=== PATIENT | male | born 1960 | race Caucasian/White ===

== ENCOUNTER 2016-06-14 23:30 | Inpatient (IN) | payer MEDICAID ==
[~2016-06-14] VITALS: Ht 180.3 cm; Wt 80.0 kg
[2016-06-14] MEDS ORDERED: ONDANSETRON 4 MG INJ IV STA (23:51)
[2016-06-14] MEDS ORDERED: SOD CHLORIDE 0.9% 1,000 ML IV STA (23:51)
[2016-06-14] MEDS ORDERED: morphine 4 MG/ML VIAL IV STA (23:51)
[2016-06-15] VITALS (10 sets, daily range): BP systolic 107–134; BP diastolic 67–85; PULSE 62–94; RESP 11–20; TEMP 98.1; Ht 180.3 cm; Wt 80.0 kg
[2016-06-15] MEDS ORDERED: ERTAPENEM SODIUM 1 GM in SOD CHLORIDE 0.9% 100 ML IVPB ONE ×2
--- NOTE | 2016-06-15 00:05 | ERA ---
ER Documentation Chief Complaint Date/Time DATE: 06/15/16 TIME: 00:01 Chief Complaint left testicle pain suddenly, appears in distress. Hx hernia HPI Patient is a 55-year-old male who states he has had a hernia for 2 years however he has developed left testicular pain in the last 24 hours. He states the pain is significant and has caused him to have nausea and vomiting. He states it is also causing him to have diffuse abdominal pain. He states all of these symptoms are new and is related to the left testicular pain. He says his left testicle is significantly swollen more so than usual. He denies any significant trauma to the testicle, fever, diarrhea, dysuria, hematuria, flank pain. He states he did go to [facility] where they reduced the hernia sometime earlier this week. Patient tells me however he does not have a general surgeon or urologist. Nothing seems to make this pain better and general movement increases the pain. The remainder of the systems are negative. ROS All systems reviewed and are negative except as per history of present illness. Medications Home Meds No Active Prescriptions or Reported Meds Allergies Allergies: Coded Allergies: No Known Allergy (Unverified , 06/14/16) FmHx Family History: No coronary disease, No diabetes Physical Exam Vitals Vital Signs Date Time Temp Pulse Resp B/P Pulse Ox O2 Delivery O2 Flow Rate FiO2 06/14/16 23:34 97.5 101 24 136/81 100 Physical Exam Const: [] Well-developed well-nourished male lying on the bed in obvious pain Head: Atraumatic Eyes: Normal Conjunctiva ENT: Normal External Ears, Nose and Mouth. Neck: Full range of motion..~ No meningismus. Resp: Clear to auscultation bilaterally Cardio: Regular rate and rhythm, no murmurs Abd: Soft, diffusely tender to palpation, no audible bowel sounds, no distention, no masses, no rebound, voluntary guarding diffusely Skin: No petechiae or rashes Back: No midline or flank tenderness Ext: No cyanosis, or edema Neur: Awake and alert, oriented 3, GCS of 15 Psych: Normal Mood and Affect exam reveals his right testicle to be within normal limits and nontender, his left testicle be grossly edematous with what appears to be a hernia emanating from the left inguinal region. I am unable to reduce this hernia. He is exquisitely tender to palpation. Result Diagram: 06/14/16 2340 06/14/16 2340 Results 24 hrs Laboratory Tests Test 06/14/16 00:30 06/14/16 23:40 Urine Bilirubin NEGATIVE Urine Clarity CLEAR Urine Color LT. YELLOW Urine Glucose NEGATIVE% Urine Hemoglobin NEGATIVE Urine Ketones 15 Urine Leukocyte Esterase NEGATIVE Urine Nitrite NEGATIVE Urine Specific [place] 1.025 Urine Total Protein NEGATIVE Urine Urobilinogen 0.2 E.U./dL Urine pH 6.0 Alanine Aminotransferase (ALT/SGPT) 31IU/L Albumin 4.5g/dl Albumin/Globulin Ratio 1.40 Alkaline Phosphatase 82IU/L Anion Gap 20 Aspartate Amino Transf (AST/SGOT) 20IU/L Basophils # 0.010^3/ul Basophils % 0.4% Blood Urea Nitrogen 22mg/dl Calcium Level 9.3mg/dl Carbon Dioxide Level 25mmol/L Chloride Level 102mmol/L Creatinine 0.68mg/dl Direct Bilirubin 0.00mg/dl Eosinophils # 0.310^3/ul Eosinophils % 2.5% Globulin 3.20g/dl Glucose Level 112mg/dl Hematocrit 42.8% Hemoglobin 14.8g/dl Indirect Bilirubin 0.9mg/dl Lactic Acid Level 1.0mmol/L Lipase 43U/L Lymphocytes # 2.010^3/ul Lymphocytes % 18.5% Mean Corpuscular Hemoglobin 30.5pg Mean Corpuscular Hemoglobin Concent 34.6g/dl Mean Corpuscular Volume 88.2fl Mean Platelet Volume 11.1fl Monocytes # 0.710^3/ul Monocytes % 6.7% Neutrophils # 7.910^3/ul Neutrophils % 71.4% Nucleated Red Blood Cells # 0.010^3/ul Nucleated Red Blood Cells % 0.0/100WBC Platelet Count 43725^3/UL Potassium Level 4.1mmol/L Red Blood Count 4.8510^6/ul Red Cell Distribution Width 12.0% Sodium Level 143mmol/L Total Bilirubin 0.9mg/dl Total Protein 7.7g/dl White Blood Count 11.010^3/ul Current Medications Medications (Trade) Dose Ordered Sig/Garry Route PRN Reason Start Time Stop Time Status Last Admin Dose Admin Sodium Chloride (NS) 1,000 ml @ 1,000 mls/hr Q1H STAT IV 06/14/16 23:51 06/15/16 00:50 DC 06/15/16 00:00 Morphine Sulfate (morphine) 4 mg ONCE STAT IV 06/14/16 23:51 06/14/16 23:58 DC 06/15/16 00:00 Ondansetron HCl 4 mg 4 mg ONCE STAT IV 06/14/16 23:51 06/14/16 23:58 DC 06/15/16 00:00 Ertapenem/Sodium Chloride (Invanz/NS) 100 ml @ 200 mls/hr ONCE ONCE IVPB 06/15/16 00:00 06/15/16 00:29 DC 06/15/16 00:46 IV Flush 10 ml 10 ml STK-MED ONCE .ROUTE 06/15/16 01:36 06/15/16 01:37 DC 06/15/16 01:51 Sodium Chloride (NS) 100 ml @ ud STK-MED ONCE .ROUTE 06/15/16 01:36 06/15/16 01:37 DC 06/15/16 01:51 Iohexol (Omnipaque 300mg/ ml) 150 ml STK-MED ONCE .ROUTE 06/15/16 01:36 06/15/16 01:37 DC 06/15/16 01:51 Morphine Sulfate (morphine) 4 mg ONCE STAT IV 06/15/16 02:28 06/15/16 02:29 DC 06/15/16 02:34 Ondansetron HCl (Zofran Inj) 4 mg ONCE STAT IV 06/15/16 02:28 06/15/16 02:29 DC 06/15/16 02:34 Procedures/MDM Differential includes but is not limited to a irreducible left inguinal hernia, bowel, bowel obstruction CAT scan of the abdomen and pelvis demonstrates a large left inguinal hernia with bowel incarcerated. Ultrasound shows that the patient has bilateral hernias however the left inguinal hernia is incarcerated Patient's pain has returned. I have ordered him more morphine and Zofran for his pain management. I spoke with Dr. Atkins who is on for general surgery. He is requested that we place an NG tube. He will operated on the patient in the morning. I spoke with Dr. Moody who is going to admit the patient for medical management. Departure Diagnosis: Primary Impression: Incarcerated left inguinal hernia Additional Impression: Testicular pain, left Condition: Good SAI GOMEZ Jun 15, 2016 00:04
[2016-06-15 00:58] LABS: ADD SCAN DIFF NO
--- NOTE | 2016-06-15 01:10 | RADRPT ---
PROCEDURE: ULTRASOUND TESTICULAR CLINICAL INDICATION: 55-year-old male with abdominal and testicular pain. TECHNIQUE: Multiple sonographic images of the scrotal region were obtained utilizing a linear arra y transducer with grayscale and color-flow and a Doppler imaging. The images were reviewed on a high -resolution PACS workstation. COMPARISON: None. FINDINGS: The right testicle is well visualized and has a normal echotexture. No focal areas of abnormal echog enicity are visualized. The right testicle measures 4.4 x 2.5 x 2 point a cm. There is normal color- flow. The right epididymis is visualized and measures approximately measures 13 x 11 mm. There is no rmal color-flow. There is [id number] right-sided hydrocele with septations. The left testicle is well visualized and has a normal echotexture. No focal areas abnormal echogenic ity are visualized. The left testicle measures 4.3 x 2.1 x 3.1 cm. There is normal color-flow. The l eft epididymis is visualized and measures approximately measures 12 x 9 mm. There is increased color -flow. There is bowel contents identified within the scrotal sac bilaterally extending to the inguinal heather ons. IMPRESSION: 1. No sonographic evidence for testicular torsion. 2. Jfrm-tm-[id number] septated right-sided hydrocele. 3. Mild increased flow within the left epididymis. Epididymitis cannot be excluded. Clinical yenny elation is necessary. 4. Bowel contents within the scrotal sac extending from the inguinal regions bilaterally consistent with a hernia. .Meet Silva MD, Date Time Electronically viewed and signed by .Meet Silva MD, MD on 06/15/2016 01:09 .Lorna
[2016-06-15 01:24] LABS: ALBUMIN 4.5 g/dl (3.3-4.9)
[2016-06-15 01:25] LABS: POTASSIUM 4.1 mmol/L (3.5-5.1)
[2016-06-15 01:26] LABS: CREATININE 0.68 mg/dl (0.61-1.24)
[2016-06-15 01:27] LABS: ALBUMIN/GLOBULIN RATIO 1.4; BASOPHILS % 0.4 % (0.0-2.0); BILIRUBIN,INDIRECT 0.9 mg/dl (0-1.1); BILIRUBIN,TOTAL 0.9 mg/dl (0.2-1.3); CALCIUM 9.3 mg/dl (8.4-10.2); EOSINOPHILS # 0.3 10^3/ul (0.0-0.5); EOSINOPHILS % 2.5 % (0.0-7.0); HEMATOCRIT 42.8 % (42.0-52.0); HEMOGLOBIN 14.8 g/dl (14.0-18.0); LYMPHOCYTES % 18.5 % (15.0-51.0); MEAN CORPUSCULAR HEMOGLOBIN 30.5 pg (29.0-33.0); MEAN CORPUSCULAR HGB CONC 34.6 g/dl (32.0-37.0); MEAN CORPUSCULAR VOLUME 88.2 fl (82.0-101.0); MEAN PLATELET VOLUME 11.1 fl (7.4-10.4); MONOCYTE # 0.7 10^3/ul (0.3-0.9); MONOCYTES % 6.7 % (0.0-11.0); NEUTROPHIL # 7.9 10^3/ul (1.6-7.5); NEUTROPHILS % 71.4 % (39.0-77.0); PLATELET COUNT 282 10^3/UL (140-415); RED BLOOD COUNT 4.85 10^6/ul (4.70-6.10); TOTAL PROTEIN 7.7 g/dl (6.1-8.1)
[2016-06-15] MEDS ORDERED: IOHEXOL 300MG/ML 150 ML BTL ONE (01:36)
[2016-06-15] MEDS ORDERED: SOD CHLORIDE 0.9% 100 ML ONE (01:36)
[2016-06-15 01:50] LABS: ADD UMIC NO; URINE BILIRUBIN (Dip) NEGATIVE (NEGATIVE); URINE BLOOD (Dip) NEGATIVE (NEGATIVE); URINE COLOR LT. YELLOW (YELLOW); URINE GLUCOSE (Dip) NEGATIVE (NEGATIVE); URINE KETONES (Dip) 15 (NEGATIVE); URINE LEUKOCYTE ESTERASE (Dip) NEGATIVE (NEGATIVE); URINE NITRITE (Dip) NEGATIVE (NEGATIVE); URINE TOTAL PROTEIN (Dip) NEGATIVE (NEGATIVE); URINE UROBILINOGEN (Dip) 0.2 E.U./dL (0.1-1.0)
--- NOTE | 2016-06-15 02:14 | RADRPT ---
PROCEDURE: CT ABDOMEN/PELVIS WITH CONTRAST CLINICAL INDICATION: 55-year-old male with abdominal pain. TECHNIQUE: The study was performed utilizing a [employer] VCT 64-slice CT scanner. Direct axia l sections were obtained through the abdomen and pelvis with the use of 90 cc of Omnipaque-300 nonio kellen intravenous contrast material. Sagittal and coronal reformations were obtained. Automated exposu re control and iterative reconstruction techniques were utilized for this examination. The images w ere reviewed on a PACS workstation. CTD/vol = 8.8 mGy; Total Exam DLP = 568.6 mGy-cm. COMPARISON: Testicular ultrasound June 15, 2016. FINDINGS: There is mild bibasilar subsegmental atelectasis. There is no evidence for significant pleural effu sanford. The liver has a normal size and contour without focal areas of abnormal density or contrast e nhancement. No intrahepatic nor extrahepatic biliary ductal dilatation is seen. The gallbladder demo nstrates no wall thickening nor pericholecystic fluid. No biliary stones are evident. The pancreas i s without areas of abnormal attenuation or contrast enhancement. This spleen is identified and has a normal size without abnormal density or contrast enhancement. The adrenal glands are unremarkable. The kidneys are functional bilaterally without abnormal density. No hydroureteronephrosis nor nephr oureterolithiasis is evident. The urinary bladder contains urine. There is a small right inguinal he rnia containing fat as well as a loop of small bowel without evidence for incarceration. The right i nguinal hernia as an opening of 1.8 x 1.3 cm. There is a very large left inguinal hernia containing dilated loops of small bowel with transition point and proximal dilatations suggestive of incarcerat ion and obstruction. The hernia sac also contains a portion of the sigmoid colon. Noted are small diverticula within the sigmoid colon within the hernia sac without definite surrounding inflammatory changes. Note that there is mild infiltration of the omental fat within the hernia sac is well as mild fluid. The left inguinal hernia as an opening of 4.8 x 3.9 cm. The appendix is not clearly vis ualized. There is no significant pelvic free fluid. The aortoiliac vessels are without aneurysmal d ilatation. Degenerative changes are present within the spine. There is bilateral L5 pars interartic ularis defects. There is anterolisthesis of L5-S1 of approximately 20% with discogenic disease, dif fuse disk bulge and severe bilateral foraminal stenosis. IMPRESSION: 1. Mild bibasilar subsegmental atelectasis. 2. Small right inguinal hernia containing a loop of small bowel without incarceration. 3. Very large left inguinal hernia containing dilated fluid loops of small bowel with fecalization and transition point consistent with incarceration and resultant small bowel obstruction. The hernia sac also contains a decompressed loop of sigmoid colon, omental fat and fluid. 4. Sigmoid diverticulosis within the hernia sac. 5. L5-S1 spondylolisthesis (20%) with severe bilateral foraminal stenosis. .Meet Silva MD, MD Date Time Electronically viewed and signed by .Meet Silva MD, MD on 06/15/2016 02:14 .Lorna
[2016-06-15] MEDS ORDERED: ONDANSETRON 4 MG INJ IV STA (02:28)
[2016-06-15] MEDS ORDERED: morphine 4 MG/ML VIAL IV STA (02:28)
[2016-06-15] MEDS ORDERED: ACETAMINOPHEN 325 MG TAB PO PRN (03:00)
[2016-06-15] MEDS ORDERED: ONDANSETRON 4 MG INJ IV PRN ×3 (03:00→14:00)
--- NOTE | 2016-06-15 03:04 | HP ---
Date/Time of Note Date/Time of Note DATE: 06/15/16 TIME: 02:58 Assessment/Plan VTE Prophylaxis VTE Prophylaxis Intervention: SCD's Assessment/Plan Assessment/Plan 55 yo male with no significant past medical history who presents with a left inguinal pain for the last two days. 1. Left incarcerated inguinal hernia - will admit the patient to med/surg, NPO, NGT, surgery notified, IVF, IV antibiotics, pain management, awaiting surgical intervention 2. Leukocytosis 2/2 #1 3. GI ppx - pepcid IV 4. DVT ppx - scds answered all of his questions. as per clinical course. this history and physical took greater then 45 minutes to complete HPI/ROS Admit Date/Time Admit Date/Time 06/15/2016, 2:58 am Hx of Present Illness 55 yo male with no significant past medical history who presents with a left inguinal pain for the last two days. He has been battling left inguinal hernia for over 2 years now. The pain has increasing worsened substantially over the last two days. It's 10/10 in intensity, radiating upwards, sharp/shooting, constant, with no alleviating factors, associated with nausea and 1 episode of NBNB vomitus. He denies any chest pain, shortness of breath, headaches, urinary irregularities, fevers/chills, diarrhea/constipation or other constitutional symptoms. ED course: invanz, pain medications, IVF ROS 14 point review of systems completed, please refer to HPI for any positive findings PMH/Family/Social Past Medical History Medical History: no pertinent history Past Surgical History Past Surgical Hx: no surgical history Family History Significant Family History: no pertinent family hx Social History Alcohol Use: none Smoking Status: Never smoker Drug Use: none Exam/Review of Systems Vital Signs Vitals Vital Signs Date Time Temp Pulse Resp B/P Pulse Ox O2 Delivery O2 Flow Rate FiO2 06/14/16 23:34 97.5 101 24 136/81 100 Intake and Output 06/14/16 06/14/16 06/15/16 15:00 23:00 07:00 Intake Total 1100 ml Balance 1100 ml Exam Exam Gen Colton: moderate distress 2/2 to inguinal pain, AAOx4 HEENT: NC/AT, PERRLA, EOMI, no pharyngeal erythema, no tonsillar exudates, no lymphadenopathy, no JVD, no carotid bruits NECK: supple, no thyromegaly THORAX: symmetrical, no obvious deformities CV: S1S2, RRR, no M/G/R Lungs: CTAB no W/C/R/R Abd: soft, NT/ND, +BS, no rebound, no guarding, neg HSM : left inguinal tenderness to palpation, enlarged scrotum, erythema noted, non -reducible hernia EXT: no edema, no ecchymosis, no clubbing, FROM Neuro: CN II-XII grossly intact, no focal deficits Psych: anxious Skin: C/D/I Labs Result Diagram: 06/14/16 2340 06/14/[address] abd/pelvis IMPRESSION: 1. Mild bibasilar subsegmental atelectasis. 2. Small right inguinal hernia containing a loop of small bowel without incarceration. 3. Very large left inguinal hernia containing dilated fluid loops of small bowel with fecalization and transition point consistent with incarceration and resultant small bowel obstruction. The hernia sac also contains a decompressed loop of sigmoid colon, omental fat and fluid. 4. Sigmoid diverticulosis within the hernia sac. 5. L5-S1 spondylolisthesis (20%) with severe bilateral foraminal stenosis. Testicular US IMPRESSION: 1. No sonographic evidence for testicular torsion. 2. Juek-ba-qdvcgcku septated right-sided hydrocele. 3. Mild increased flow within the left epididymis. Epididymitis cannot be excluded. Clinical correlation is necessary. 4. Bowel contents within the scrotal sac extending from the inguinal regions bilaterally consistent with a hernia. ANNE NOONAN MD Jun 15, 2016 03:03
[2016-06-15] MEDS ORDERED: ACETAMINOPHEN 650 MG SUPP PR PRN (03:30)
[2016-06-15] MEDS ORDERED: NACL 0.9% 3 ML SYG IV SCH (03:30)
[2016-06-15] MEDS ORDERED: morphine 2 MG INJ IV PRN (03:30)
--- NOTE | 2016-06-15 04:48 | RADRPT ---
PROCEDURE: XR Chest. CLINICAL INDICATION: Nasogastric tube placement TECHNIQUE: AP Portable chest. COMPARISON: No pertinent prior examinations were submitted for comparison. FINDINGS: The cardiomediastinal silhouette is normal. The lungs are clear. The osseous structures are unrema rkable. A nasogastric tube tip is within the stomach. IMPRESSION: No acute findings. RPTAT: HIKT .Giles Barker MD, MD Date Time Electronically viewed and signed by .Giles Barker MD, on 06/15/2016 04:48 .T/
[2016-06-15] MEDS: SOD CHLORIDE 0.9% 1,000 ML IV SCH ×2 (06:37→16:07)
[2016-06-15] MEDS: PIPER-TAZO 3.375 GM IV (PMX) 100 ML IVPB SCH ×4 (06:37→23:54)
[2016-06-15] MEDS: FAMOTIDINE 20 MG INJ IV SCH ×2 (09:36→21:53)
[2016-06-15] MEDS: HYDROmorphONE 1 MG/ML SYG IV PRN (10:07)
[2016-06-15] MEDS ORDERED: ROCURONIUM 50 MG INJ ONE (13:06)
[2016-06-15] MEDS ORDERED: PROPOFOL 40 ML ONE (13:06)
[2016-06-15] MEDS ORDERED: MIDAZOLAM 1 MG/ML 2 ML INJ ONE (13:06)
[2016-06-15] MEDS ORDERED: LIDOCAINE 1% (MPF) 30 ML INJ ONE (13:41)
[2016-06-15] MEDS ORDERED: BUPIVACAINE 0.5%/EPI (SDV) 30 ML INJ ONE (13:41)
[2016-06-15] MEDS ORDERED: HYDROmorphONE (0.2 MG/ML) 10ML SYG IV PRN ×3 (14:00)
[2016-06-15] MEDS ORDERED: MEPERIDINE 25 MG INJ IV PRN (14:00)
[2016-06-15] MEDS ORDERED: morphine (1 MG/ML) 10ML SYRINGE IV PRN ×3 (14:00)
[2016-06-15] MEDS ORDERED: METOCLOPRAMIDE 10 MG INJ IV PRN (14:00)
[2016-06-15] MEDS ORDERED: KETOROLAC 30 MG INJ ONE (14:02)
[2016-06-15] MEDS ORDERED: METOCLOPRAMIDE 10 MG INJ ONE (14:02)
[2016-06-15] MEDS ORDERED: ONDANSETRON 4 MG INJ ONE (14:02)
[2016-06-15] MEDS ORDERED: DEXAMETHASONE 4 MG/ML 1 ML INJ ONE (14:02)
[2016-06-15] MEDS ORDERED: POLYMYXIN/BACITRACIN 1L IRRIG IRR ONE (14:10)
[2016-06-15] MEDS ORDERED: LIDOCAINE 1% (MPF) 30 ML INJ INJ ONE (14:20)
[2016-06-15] MEDS ORDERED: BUPIVACAINE 0.5%/EPI (SDV) 30 ML INJ INJ ONE (14:20)
[2016-06-15] MEDS ORDERED: ROPIVACAINE 0.5 % 30 ML VIAL ONE (15:04)
[2016-06-15] MEDS ORDERED: NEOSTIGMINE 3 MG/3 ML SYRINGE ONE (15:07)
[2016-06-15] MEDS ORDERED: GLYCOPYRROLATE 0.4 MG INJ ONE (15:07)
--- NOTE | 2016-06-15 15:49 | PN ---
Date/Time of Note Date/Time of Note DATE: 06/15/16 TIME: 15:44 Assessment/Plan Lines/Catheters IV C[facility]ter Type (from [facility]): Peripheral IV Mendoza in Place (from [facility]): No Assessment/Plan Chief Complaint/Hosp Course 1. Incarcerated left inguinal hernia with small and large bowel with bowel obstruction -Nothing by mouth -NG tube -OR for repair of left inguinal hernia 2. Right reducible inguinal hernia -We'll repair at a later time 3. Ventral hernia, small -We'll repair later time 4. Mild leukocytosis secondary to acute process -Monitor 5. Diverticulosis -Nutrition and lifestyle optimization 6. L5-S1 disc and foraminal disease -Outpatient Ortho follow-up -Physical therapy per auto Thank you, Dictation #: [id number] Problems: Subjective 24 Hr Interval Summary No fevers or chills. No nausea vomiting. NG tube in place. Minimal bowel function. Minimal pain in the left groin. No headache. No visual or neurologic changes. No dysuria. OR today. Exam/Review of Systems Vital Signs Vitals Vital Signs Date Time Temp Pulse Resp B/P Pulse Ox O2 Delivery O2 Flow Rate FiO2 06/15/16 08:09 98.1 82 20 114/76 93 06/15/16 06:00 Room Air Intake and Output 06/14/16 06/14/16 06/15/16 15:00 23:00 07:00 Intake Total 1100 ml Balance 1100 ml Exam Constitutional: alert, oriented, No distress Psych: nl mood/affect, No anxiety Head: atraumatic, normocephalic Eyes: EOMI, PERRL, nl conjunctiva, No icteric ENMT: mucosa pink and moist, nl external ears & nose, nl lips & teeth Neck: non-tender, supple, No jvd Respiratory: normal air movement, No congested cough Cardiovascular: regular rate and rhythm, No edema Gastrointestinal: non-tender, other (large left inguinal hernia incarcerated minimally tender. Reducible right inguinal hernia. Small ventral umbilical hernia.), soft, No rebound or guarding Genitourinary - Male: nl penis (with 3 balls towards the head), No nl scrotum Musculoskeletal: nl extremities to inspection, nl gait and stance, No joint tenderness Extremities: normal pulses, No calf tenderness, No edema Neurological: nl mental status, nl speech, nl strength Skin: nl turgor, No diaphoresis, No rash or lesions Lymph: nl lymph nodes, No nontender Results Result Diagram: 06/14/16 2340 06/14/16 2340 SINDHU MEDRANO MD Jun 15, 2016 15:49
--- NOTE | 2016-06-15 15:51 | OPR ---
Date/Time of Note Date/Time of Note DATE: 06/15/16 TIME: 15:49 Operative Report Procedure Date: Jun 15, 2016 Preoperative Diagnosis Incarcerated left large inguinal hernia with small and large bowel and obstruction Postoperative Diagnosis Same Operation Performed 1. Left inguinal incarcerated hernia repair with light mesh 2. Local anesthetic, [address] 3. Difficult operation, modifier 22 Surgeon: SINDHU MEDRANO MD Anesthesia: general (plus local plus regional) Anesthesiologist: LEE WHITAKER MD Estimated Blood Loss: 10 - 50 ml's Specimens Hernia sac Tubes/Drains Light mesh Complications: None Pt Condition Post Procedure: stable Disposition: PACU Indications Per consult Risks include but are not limited to bleeding, infection, abscess, seroma, hematoma, damage to intestines, damage to spermatic structures, loss of testicle , sensation loss to the thigh and scrotum, recurrence of hernia, chronic pain, need for re-operations or further surgeries, MD, stroke, PE, DVT, pneumonia, organ failures, or even . Procedure Description Patient was brought and placed supine on the operating table, and after induction of anesthesia, he was prepped and draped in usual sterile fashion and timeout was performed. SCDs had already been placed. Preoperative antibiotics had already been administered. All pressure points were well-padded. The ilioinguinal nerve block was performed approximately 2 cm medial and inferior to superior anterior iliac spine. Local anesthetic was infiltrated along the incision parallel to the inguinal ligament. Incision was made in the skin and carried through subcutaneous tissue to the external oblique fascia on the left side. Fascia was opened sharply. Using Metzenbaums the fascia was opened with care taken not to injure the ilioinguinal nerve. Fascia was opened into the external ring. There was a large indirect hernia identified and at this point Patricia drain was placed around the hernia structures and the cord structures. All the incarcerated bowel was reduced safely. The ventral investigation after opening the peritoneum did not identify any ischemia. Using then gentle dissection I was able to separate the hernia sac from the cord structures safely the testicle had to be externalized to allow full investigation and separation of the structures. Hernia sac was very large and was partially excised and the remaining sac was eventually closed and with a running 2-0 Vicryl suture and then placed back into the abdomen. This was a difficult operation due to the enormous the of the size of the hernia at the scarring of the hernia and the sac and the structures to each other and the meticulous dissection required to preserve the testicular anatomy and function and its structures of the cord. Bard soft mesh was used to secure to the pubic tubercle 2 with 0 Prolene. The lower suture was ran along the shelving edge all the way lateral to the internal ring. The superior suture was ran along the conjoined tendon past the internal ring as well. The 2 leaves of the mesh were sutured together just lateral to the internal ring. This point the hernia site was fully covered. Wound was irrigated to clear suctioning fluid. There was complete hemostasis. Wound was closed in multiple layers with irrigation between each layer. 2-0 Vicryl was used to close the external fascia and a running fashion leaving space for the external ring. Christopher's fascia was closed with 3-0 Vicryl in running fashion followed by 4-0 Monocryl subcuticular skin closure. Dermabond was applied. Patient was extubated and transferred to recovery room in stable condition and all counts were correct at the end of the operation 2. SINDHU MEDRANO MD Jun 15, 2016 15:51
[2016-06-15] MEDS ORDERED: POLYMYXIN/BACITRACIN 1L IRRIG ONE (16:14)
--- NOTE | 2016-06-15 18:49 | CONS ---
DATE OF ADMISSION: 06/15/2016 DATE OF CONSULTATION: TYPE OF CONSULTATION: Surgical. REFERRING PHYSICIAN: TIFFANI Shirley CHIEF COMPLAINT: 1. Left groin pain. 2. Incarcerated small and large bowel within left groin hernia. 3. Small-bowel obstruction. 4. Right inguinal hernia. 5. Ventral hernia. HISTORY OF PRESENT ILLNESS: Mr. Issac Salguero is a 55-year-old male with a 2 year history of usman in hernia that he saw somebody at [facility], but was unable to follow up, now presents with a few d ays of worsening pain associated with nausea, vomiting without fevers or chills. No chest pain or s hortness of breath. No visual or neurologic changes. No dysuria. Decreased bowel function. No he adache. No urinary symptoms. Pain is sharp and radiates to his abdomen. No alleviating factors. No trauma or sick contacts. PAST MEDICAL HISTORY: 1. Left inguinal hernia. 2. Right inguinal hernia. 3. Ventral hernia. 4. Incarcerated hernia with obstruction. 5. Abdominal and groin pain. 6. Mild leukocytosis. 7. Sigmoid diverticulosis. 8. L5/S1 spondylolisthesis 20% with bilateral foraminal stenosis. PAST SURGICAL HISTORY: Denies. MEDICATIONS: As per MAR. ALLERGIES: NONE. SOCIAL HISTORY: No recreational drugs. FAMILY HISTORY: Noncontributory. REVIEW OF SYSTEMS: A 12-point review of systems negative unless addressed in HPI. PHYSICAL EXAMINATION: VITAL SIGNS: Temperature 97.5, pulse 101, blood pressure 136/81, saturating 100%. GENERAL: Uncomfortable and in pain. HEENT: Pupils equal, reactive. No scleral icterus. Mucous membranes are somewhat dry. NECK: Supple, no JVD. PULMONARY: Normal respiratory effort. HEART: S1, S2 present. ABDOMEN: Soft, nontender, no rebound, no guarding, not rigid. Small ventral umbilical hernia. Red ucible right inguinal hernia. Very large left inguinal hernia, nonreducible and minimally tender. No skin changes. SKIN: No rashes. No jaundice. LABORATORY DATA: WBC is 11, chemistries mostly normal. Urine is negative for nitrites or leukocyte s. RADIOGRAPHIC: CT is noted. ASSESSMENT AND PLAN: Mr. Issac Salguero is a 55-year-old male. 1. Incarcerated left inguinal hernia with small and large bowel with bowel obstruction. Keep n.p.o . NG tube. OR for repair of left inguinal hernia. 2. Right reducible inguinal hernia. We will repair at a later time. 3. Ventral hernia, small. We will repair at a later time. 4. Mild leukocytosis secondary to acute process. Monitor. 5. Diverticulosis. Nutrition and lifestyle optimization. 6. L5-S1 lumbar disk and foraminal disease. Outpatient ortho followup. Physical therapy per ortho. Thank you very much for consulting me in this patient's care. Dictated By: SINDHU HOLLAND/MAYE Conf#: [id number] DID#: [id number]
[2016-06-16] MEDS: SOD CHLORIDE 0.9% 1,000 ML IV SCH (00:38)
[2016-06-16] MEDS: PIPER-TAZO 3.375 GM IV (PMX) 100 ML IVPB SCH ×3 (05:32→17:48)
[2016-06-16 05:48] LABS: ADD SCAN DIFF NO
[2016-06-16 05:52] LABS: BASOPHILS % 0.3 % (0.0-2.0); HEMATOCRIT 35.8 % (42.0-52.0); HEMOGLOBIN 12.4 g/dl (14.0-18.0); LYMPHOCYTES # 1.5 10^3/ul (0.8-2.9); LYMPHOCYTES % 13.4 % (15.0-51.0); MEAN CORPUSCULAR HEMOGLOBIN 31.4 pg (29.0-33.0); MEAN CORPUSCULAR HGB CONC 34.6 g/dl (32.0-37.0); MEAN CORPUSCULAR VOLUME 90.6 fl (82.0-101.0); MEAN PLATELET VOLUME 10.8 fl (7.4-10.4); MONOCYTE # 1.1 10^3/ul (0.3-0.9); MONOCYTES % 10.2 % (0.0-11.0); NEUTROPHIL # 8.4 10^3/ul (1.6-7.5); NEUTROPHILS % 75.8 % (39.0-77.0); PLATELET COUNT 211 10^3/UL (140-415); RED BLOOD COUNT 3.95 10^6/ul (4.70-6.10); RED CELL DISTRIBUTION WIDTH 12.4 % (11.5-14.5); WHITE BLOOD COUNT 11.1 10^3/ul (4.8-10.8)
[2016-06-16 06:11] LABS: PHOSPHORUS 3.4 mg/dl (2.5-4.9)
[2016-06-16 06:14] LABS: CREATININE 0.66 mg/dl (0.61-1.24)
[2016-06-16 06:15] LABS: CALCIUM 8.4 mg/dl (8.4-10.2)
[2016-06-16 06:41] LABS: THYROID STIMULATING HORMONE 0.362 MIU/L (0.465-4.680)
[2016-06-16 07:24] VITALS: BP 104/63; RESP 20
[2016-06-16] MEDS: FAMOTIDINE 20 MG INJ IV SCH (08:32)
[2016-06-16] MEDS: HYDROmorphONE 1 MG/ML SYG IV PRN (08:35)
[2016-06-16] MEDS ORDERED: INFLUENZA VIRUS VACCINE 0.5 ML (DISPENSING) IM* ONE (09:00)
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
[2016-06-16] MEDS ORDERED: TRAM50TA2 PO (10:45)
[2016-06-16] MEDS ORDERED: DOCU-144 PO (10:45)
--- NOTE | 2016-06-16 13:59 | PDOCDIS ---
Discharge Instructions DIAGNOSIS Discharge Diagnosis: 1. Left incarcerated inguinal hernia 2. Leukocytosis secondary to #1 CONDITION Patient Condition: Stable HOME CARE INSTRUCTIONS: Diet Instructions: Regular FOLLOW UP/APPOINTMENTS Appointments 1. Follow up with Dr. Beltran Atkins in one week. SIMONE SCOTT Jun 16, 2016 13:59
--- NOTE | 2016-06-16 14:57 | DS ---
Date/Time of Note Date/Time of Note DATE: 06/16/16 TIME: 14:54 Discharge Summary Admission/Discharge Info Admit Date/Time Jun 15, 2016 at 02:28 Discharge Date/Time Final Diagnosis 1. Left inguinal hernia Patient Condition: Stable Hospital Course This is a 55-year-old male with past medical history of left inguinal hernia who came to [facility] with left inguinal pain for 2 days' duration. Patient did report he had been given having left inguinal hernia for 2 years with worsening pain that started 2 days prior to admission. He reported that it was radiating upwards sharp constant. He did come to [facility] for the upper mention issues. Abdominal pelvic CT scan did show the patient have a very large left inguinal hernia containing dilated fluid loops of small bowel with utilization and transition point consistent with incarceration and resultant small bowel obstruction. Patient was seen by general surgeon. He did have laparoscopic inguinal hernia repair and did tolerate well. Patient was otherwise optimized medically. He was continued with analgesics. We did gradually advance his diet and he did tolerate well. During his course of stay did improve. The plan of care was discussed with the patient and patient did verbalize understanding. On the day of discharge patient was in stable condition Discharge process time 40 minutes Discussed plan of care with Dr. Haywood Disposition: Home Home Meds Active Scripts Docusate Sodium* (Colace*) 100 Mg Capsule, 100 MG PO BID Y for CONSTIPATION, # 30 CAP Prov:SIMONE SCOTT 06/16/16 Tramadol HCl (Tramadol HCl) 50 Mg Tablet, 50 MG PO Q6H Y for PAIN, #30 TAB Prov:SIMONE SCOTT 06/16/16 Follow-up Plan CONDITION Patient Condition: Stable HOME CARE INSTRUCTIONS: Diet Instructions: Regular FOLLOW UP/APPOINTMENTS Appointments 1. Follow up with Dr. Beltran Atkins in one week. Pending Labs Laboratory Tests Test 06/16/16 05:10 06/16/16 05:11 Basophils # 0.010^3/ul (0.0-0.1) Basophils % 0.3% (0.0-2.0) Eosinophils # 0.010^3/ul (0.0-0.5) Eosinophils % 0.0% (0.0-7.0) Hematocrit 35.8% (42.0-52.0) Hemoglobin 12.4g/dl (14.0-18.0) Lymphocytes # 1.510^3/ul (0.8-2.9) Lymphocytes % 13.4% (15.0-51.0) Mean Corpuscular Hemoglobin 31.4pg (29.0-33.0) Mean Corpuscular Hemoglobin Concent 34.6g/dl (32.0-37.0) Mean Corpuscular Volume 90.6fl (82.0-101.0) Mean Platelet Volume 10.8fl (7.4-10.4) Monocytes # 1.110^3/ul (0.3-0.9) Monocytes % 10.2% (0.0-11.0) Neutrophils # 8.410^3/ul (1.6-7.5) Neutrophils % 75.8% (39.0-77.0) Nucleated Red Blood Cells # 0.010^3/ul (0.0-0.0) Nucleated Red Blood Cells % 0.0/100WBC (0.0-0.0) Platelet Count 66481^3/UL (140-415) Red Blood Count 3.9510^6/ul (4.70-6.10) Red Cell Distribution Width 12.4% (11.5-14.5) White Blood Count 11.110^3/ul (4.8-10.8) Anion Gap 14 (8-16) Blood Urea Nitrogen 14mg/dl (7-20) Calcium Level 8.4mg/dl (8.4-10.2) Carbon Dioxide Level 24mmol/L (21-31) Chloride Level 107mmol/L (97-110) Cholesterol Level 132mg/dl (100-200) Cholesterol/HDL Ratio 3.0RATIO Creatinine 0.66mg/dl (0.61-1.24) Free Thyroxine 1.81ng/dl (0.64-1.79) Glucose Level 101mg/dl (70-220) HDL Cholesterol 44mg/dl (28-71) Hemoglobin A1c 6.0% (0-5.9) LDL Cholesterol, Calculated 79mg/dl Magnesium Level 2.0mg/dl (1.7-2.5) Phosphorus Level 3.4mg/dl (2.5-4.9) Potassium Level 4.0mmol/L (3.5-5.1) Sodium Level 141mmol/L (135-144) Thyroid Stimulating Hormone (TSH) 0.362MIU/L (0.465-4.680) Triglycerides Level 45mg/dl (0-149) SIMONE SCOTT Jun 16, 2016 14:57
== END 2016-06-16 18:50 | disposition home or self-care (01) | DRG 352 ==
LOC: E/R 23:30 → MS2 06-15 02:28
PROVIDERS: ADMIT Student in an Organized Health Care Education/Training Program; ATTEND Student in an Organized Health Care Education/Training Program
PROC: 0YU60JZ Supplement Left Inguinal Region with Synthetic Substitute, Open Approach (ICD-10-PCS; principal; 2016-06-15 14:00)
DX: K40.30 Unilateral inguinal hernia, with obstruction, without gangrene, not specified as recurrent (principal); D72.829 Elevated white blood cell count, unspecified; K43.9 Ventral hernia without obstruction or gangrene; K57.30 Diverticulosis of large intestine without perforation or abscess without bleeding; M51.27 Other intervertebral disc displacement, lumbosacral region
CPT/HCPCS: 36415; 71010; 74177; 76870; 80048; 80053; 80061; 81003; 83036; 83605; 83690; 83735; 84100; 84439; 84443; 85025; 88304; 90686; 96361; 96365; 96375; 96376; C1781; J1100; J1170; J1335; J1885; J2250; J2270; J2405; J2543; J2710; J2765; J2795; J3010; J7030; Q9967